=== PATIENT | female | born 1980 ===

== ENCOUNTER 2023-10-21 11:19 | Outpatient (CLI) | payer OTHER | END 2023-10-21 11:24 | disposition home or self-care (01) | LOC: RAD 11:19 | PROVIDERS: ATTEND Orthopaedic Surgery | DX: S82.231D Displaced oblique fracture of shaft of right tibia, subsequent encounter for closed fracture with routine healing (principal); Z88.2 Allergy status to sulfonamides ==

== ENCOUNTER 2023-12-23 10:36 | Outpatient (CLI) | payer OTHER | END 2023-12-23 10:41 | disposition home or self-care (01) | LOC: RAD 10:36 | PROVIDERS: ATTEND Orthopaedic Surgery | DX: S82.231D Displaced oblique fracture of shaft of right tibia, subsequent encounter for closed fracture with routine healing (principal) ==

== ENCOUNTER 2024-06-16 12:33 | Outpatient (CLI) | payer OTHER | END 2024-06-16 12:39 | disposition home or self-care (01) | LOC: RAD 12:33 | PROVIDERS: ATTEND Orthopaedic Surgery | DX: S82.231D Displaced oblique fracture of shaft of right tibia, subsequent encounter for closed fracture with routine healing (principal) ==

== ENCOUNTER → 2025-05-31 | Outpatient (CLI) | payer OTHER | END | disposition home or self-care (01) | LOC: RAD 14:37 | PROVIDERS: ATTEND Psychiatry & Neurology Clinical Neurophysiology | DX: G95.0 Syringomyelia and syringobulbia (principal) ==